=== PATIENT | male | born 1995 | race Hispanic/Latino ===

== ENCOUNTER 2020-01-30 21:55 | Emergency (ER) | payer OTHER | END 2020-01-30 23:32 | disposition home or self-care (01) | LOC: EDH 21:55 | DX: R07.89 Other chest pain (principal) ==

== ENCOUNTER 2021-01-02 23:13 | Emergency (ER) | payer OTHER ==
[~2021-01-02] VITALS: Ht 177.8 cm; Wt 72.6 kg
[2021-01-02 23:22] VITALS: BP 148/68
[2021-01-03] MEDS ORDERED: DICYCLOMINE HCL 20 MG TAB PO SCH (00:15)
[2021-01-03] MEDS ORDERED: PANTOPRAZOLE SODIUM 40 MG TABLET.DR PO SCH (00:15)
[2021-01-03] MEDS ORDERED: FAMOTIDINE 20MG TAB 20 MG TAB PO SCH (00:15)
[2021-01-03] MEDS ORDERED: LIDOCAINE HCL 2% VISCOUS 15 ML UDCUP PO SCH (00:15)
[2021-01-03] MEDS ORDERED: MAG HYDROX/AL HYDROX/SIMETH ES 30 ML SUSP UDCUP PO SCH (00:15)
[2021-01-03] MEDS ORDERED: PANT40TA PO (00:29)
[2021-01-03] MEDS ORDERED: METO-296 PO (00:29)
[2021-01-03 01:06] VITALS: BP 131/69
== END 2021-01-03 01:17 | disposition home or self-care (01) ==
LOC: EDH 23:21
DX: K29.70 Gastritis, unspecified, without bleeding (principal); F41.9 Anxiety disorder, unspecified; K21.9 Gastro-esophageal reflux disease without esophagitis; R20.0 Anesthesia of skin
CPT/HCPCS: 93005